=== PATIENT | male | born 2000 | race African-American/Black ===

== ENCOUNTER 2021-01-24 15:49 | Emergency (ER) | payer SELFPAY ==
--- NOTE | 2021-01-24 16:13 | PHYS DOC ---
Adult General Chief Complaint Chief Complaint: FEVER HPI HPI Patient is a 20-year-old male presenting for multiple complaints. Reports for past 72 hours, he is been unable to sleep, had generalized body aches and pains, has had rhinorrhea, dry nonproductive cough and ongoing nausea. Nothing known makes better or worse. Reports he has had decreased p.o. intake as a result of ongoing nausea. Admits he is otherwise healthy with no known medical diagnoses and takes no medications on a daily basis. Denies alcohol tobacco or drug use as he is currently on probation for prior drug use. Admits he had the first dose of an unknown Covid vaccine and is pending his second dose. Review of Systems Review of Systems Fourteen body systems of review of systems have been reviewed. See HPI for pertinent positives and negative responses, other jackson all other systems are negative, non-pertinent or non-contributory Allergies Allergies Allergies Coded Allergies Type Severity Reaction Last Updated Verified No Known Drug Allergies 01/24/21 No Physical Exam Physical Exam General: Appears well, non toxic, and comfortable Skin: Warm, dry. Normal for ethnicity. HEENT: Atraumatic. PERRLA. Rhinorrhea and congestion. Nasal turbinates boggy b/l. Moist mucous membranes. Uvula midline. Maintaining secretions. No phonation changes. Neck: Trachea midline. Normal ROM. No stridor. Respiratory: Normal WOB. CTAB w/o w/r/r. No tachypnea. Cardiovascular: Regular rate and rhythm. Normal peripheral perfusion. Abdomen: Soft. Non tender. No distension. Back: Normal ROM. Musculoskeletal: No swelling or deformity. Neuro: Alert and oriented x 4. MAEE. Lymph: No cervical LAD. Psych: Normal affect and mood. EKG EKG [] Radiology/Procedures Radiology/Procedures [] Heart Score C/O Chest Pain: No Risk Factors: Risk Factors: DM, Current or recent (<one month) smoker, HTN, HLP, family history of CAD, obesity. Risk Scores: Risk Factors: DM, Current or recent (<one month) smoker, HTN, HLP, family history of CAD, obesity. Course & Med Decision Making Course & Med Decision Making ABCs unremarkable. I disclosed entirety of ER findings and discussed most likely diagnosis of viral syndrome. Cannot exclude COVID-19 despite patient receiving first of 2 part series of vaccines, joint decision made to test patient with results pending. He is otherwise well-appearing and so, continued supportive care practices advised. Patient exhibits no red flag signs or symptoms such as neck pain, he does have all childhood vaccines and is not in any high risk areas like residential/ and does not have any fever etc. 4 mg ODT Zofran administered with improvement in patient's nausea, this will be prescribed to him on departure. Plan of care discussed at length with need for close outpatient follow-up to review today's ER visit stressed. Strict return precautions were also discussed at length with good understanding by patient. Patient voiced understanding and agreement with the plan. Patient knows to come back for repeat evaluation if concerning signs or symptoms present prior to out patient follow-up. Hemodynamically stable, ambulatory and well-appearing at time of disposition. Dragon Disclaimer Dragon Disclaimer This electronic medical record was generated, in whole or in part, using a voice recognition dictation system. Departure Departure: Impression: Primary Impression: Viral syndrome Additional Impressions: Person under investigation for COVID-19 Nausea Disposition: HOME / SELF CARE / HOMELESS Condition: STABLE Referrals: PCP,UNKNOWN (PCP) Patient Instructions: Viral Syndrome Additional Instructions: You were seen for headache, fever, body aches, and possible infection with COVID-19. Your physical exam was reassuring. We tested you for COVID-19 but this test does not come back for 1 to 2 days. In the meantime you need to quarantine yourself at home away from all other individuals, especially those who are elderly or have any other chronic health issues or an immunocompromised status. You should return to the ED if you develop worsening cough, shortness of breath, chest pain, or any other new or concerning symptoms. Alternate Tylenol and ibuprofen as needed for body aches and pain. If your test does come back positive you need to quarantine yourself for 10 days until symptom-free. You should make sure to drink plenty of fluids and get plenty of rest. Scripts Ondansetron (ONDANSETRON ODT) 4 Mg Tab.rapdis 1 TAB PO PRN Q6-8HRS for NAUSEA, #16 TAB Prov: DESTINEE FORD DO 01/24/21 Problem Qualifiers DESTINEE FORD DO Jan 24, 2021 16:13
[2021-01-24] MEDS ORDERED: ONDANSETRON ODT 4 MG TAB.RAPDIS PO ONE (16:15)
[2021-01-24] MEDS ORDERED: ACETAMINOPHEN 325 MG TABLET PO ONE (16:15)
[2021-01-24] MEDS ORDERED: ONDA4TAB12 PO (16:29)
== END 2021-01-24 16:36 | disposition home or self-care (01) ==
LOC: ER 15:49
DX: B34.9 Viral infection, unspecified (principal); Z20.822 Contact with and (suspected) exposure to COVID-19
CPT/HCPCS: 99283; C9803; Q0162; U0003

== ENCOUNTER 2021-09-20 06:56 | Emergency (ER) | payer SELFPAY ==
[~2021-09-20] VITALS: Ht 175.3 cm; Wt 69.5 kg
[~2021-09-20 06:56] MED LIST: ONDA4TAB12 PO
[2021-09-20 07:40] VITALS: BP 125/77
--- NOTE | 2021-09-20 07:46 | PHYS DOC ---
Adult General Chief Complaint Chief Complaint: FEVER HPI HPI Patient is a 21-year-old male presents with nausea and vomiting. Symptoms started yesterday. Patient states that he is thrown up several times. He has some epigastric discomfort intermittently in association with vomiting. He has not had any diarrhea. He states was 105 at home. He has had a nonproductive cough as well. No sick contacts. Review of Systems Review of Systems Constitutional: Reports fever Eyes: Denies change in visual acuity or eye pain HENT: Denies sore throat Respiratory: Reports cough and shortness of breath Cardiovascular: Denies chest pain GI: Reports epigastric abd pain : Denies dysuria Musculoskeletal: Denies back or extremity injury Integument: Denies rash or skin lesions Neurologic: Denies headache, focal weakness or sensory changes All other systems were reviewed and found to be within normal limits, except as documented in this note. Allergies Allergies Allergies Coded Allergies Type Severity Reaction Last Updated Verified No Known Drug Allergies 01/24/21 No Physical Exam Physical Exam Constitutional: Well developed, well nourished, no acute distress, non-toxic appearance. HENT: Normocephalic, atraumatic, bilateral external ears normal, mucosa moist, nose normal. Eyes: EOMI, conjunctiva normal, no discharge. Neck: Normal range of motion, supple, no stridor, no meningeal signs. Cardiovascular: Regular rate and rhythm Lungs & Thorax: Bilateral breath sounds clear to auscultation Abdomen: Soft, no tenderness or obvious masses Skin: Warm, dry, no erythema, no rash. Extremities: No tenderness, no cyanosis, no clubbing, ROM intact, no edema. Neurologic: Alert and oriented, normal motor function, normal sensory function, no focal deficits noted. Psychologic: Affect normal, judgement normal, mood normal. EKG EKG [] Radiology/Procedures Radiology/Procedures [] Heart Score C/O Chest Pain: No Risk Factors: Risk Factors: DM, Current or recent (<one month) smoker, HTN, HLP, family history of CAD, obesity. Risk Scores: Risk Factors: DM, Current or recent (<one month) smoker, HTN, HLP, family history of CAD, obesity. Course & Med Decision Making Course & Med Decision Making Pertinent Labs and Imaging studies reviewed. (See chart for details) [] This 21-year-old male with influenza A. We will give him a prescription for Tamiflu as well as Zofran. He was given fluids Zofran and Pepcid in the ED and symptoms have improved. He is stable for discharge. Yoli Disclaimer Yoli Disclaimer This electronic medical record was generated, in whole or in part, using a voice recognition dictation system. Departure Departure: Impression: Primary Impression: Influenza A Disposition: HOME / SELF CARE / HOMELESS Condition: STABLE Referrals: PCP,NO (PCP) Patient Instructions: Influenza A (H1N1) Scripts Oseltamivir Phosphate (TAMIFLU) 75 Mg Capsule 1 CAP PO BID for influenza, #10 CAP Prov: FAUSTINO ZAZUETA MD 09/20/21 Ondansetron (ONDANSETRON ODT) 4 Mg Tab.rapdis 1 TAB PO Q6HRS for nausea, #12 TAB Prov: FAUSTINO ZAZUETA MD 09/20/21 FAUSTINO ZAZUETA MD Sep 20, 2021 07:46
--- NOTE | 2021-09-20 08:01 | RAD ---
Exam Date: 09/20/2021 7:55 AM XR CHEST 1V Indication: Reason: fever / Spl. Instructions: / History: . FINDINGS/ IMPRESSION: The cardiac silhouette and pulmonary vasculature are within normal limits. There is no focal consolidation, pleural effusion or pneumothorax. The visualized osseous structures are intact. Electronically signed by: Asad Pérez MD (09/20/2021 7:59 AM) [id number]
[2021-09-20] MEDS: FAMOTIDINE 20 MG/2 ML VIAL IVP ONE (08:02)
[2021-09-20] MEDS: ONDANSETRON PF 4 MG/2 ML VIAL. IVP ONE (08:02)
[2021-09-20] MEDS: IV NORMAL SALINE 1,000ML 1,000 ML IV ONE (08:03)
[2021-09-20 08:16] LABS: BASO % 0 % (0-3); EOS % 0 % (0-3); HEMATOCRIT 42.9 % (39.0-53.0); HEMOGLOBIN 13.5 g/dL (13.0-17.5); LYMPH # 0.4 x10^3/uL (1.0-4.8); LYMPH % 8 % (24-48); MEAN CORPUSCULAR HEMOGLOBIN 24 pg (25-35); MEAN CORPUSCULAR HGB CONC 32 g/dL (31-37); MEAN CORPUSCULAR VOLUME 75 fL (79-100); MONO # 0.5 x10^3/uL (0.0-1.1); MONO % 9 % (0-9); NEUT # 4.7 x10^3uL (1.8-7.7); NEUT % 83 % (31-73); PLATELET COUNT 189 x10^3/uL (140-400); RED BLOOD COUNT 5.75 x10^6/uL (4.30-5.70); RED CELL DISTRIBUTION WIDTH 13.2 % (11.5-14.5); WHITE BLOOD COUNT 5.7 x10^3/uL (4.0-11.0)
[2021-09-20 08:19] LABS: CALCIUM 8.6 mg/dL (8.5-10.1); CREATININE 0.9 mg/dL (0.7-1.3); GFR 128.9; POTASSIUM 3.4 mmol/L (3.5-5.1)
[2021-09-20 08:25] LABS: ALBUMIN 3.9 g/dL (3.4-5.0); ALBUMIN/GLOBULIN RATIO 1.2 (1.0-1.7); MAGNESIUM 2.2 mg/dL (1.8-2.4); TOTAL BILIRUBIN 0.3 mg/dL (0.2-1.0); TOTAL PROTEIN 7.1 g/dL (6.4-8.2)
[2021-09-20 08:37] LABS: INFLUENZA B PATIENT NEGATIVE (NEGATIVE)
[2021-09-20 08:40] LABS: INFLUENZA A PATIENT POSITIVE (NEGATIVE)
[2021-09-20] MEDS ORDERED: OSEL75CA PO (08:48)
[2021-09-20] MEDS ORDERED: ONDA4TAB12 PO (08:48)
== END 2021-09-20 09:14 | disposition home or self-care (01) ==
LOC: ER 06:56
DX: J10.1 Influenza due to other identified influenza virus with other respiratory manifestations (principal)
CPT/HCPCS: 36415; 71045; 80053; 83690; 83735; 85025; 87428; 96361; 96374; 96375; 99284; G0480; J2405; J3490; J7030

== ENCOUNTER 2021-09-21 16:30 | Emergency (ER) | payer SELFPAY ==
[~2021-09-21] VITALS: Ht 175.3 cm; Wt 69.5 kg
[~2021-09-21 16:30] MED LIST changes: +OSEL75CA PO
[2021-09-21 16:35] VITALS: BP 136/75
--- NOTE | 2021-09-21 16:39 | PHYS DOC ---
Past History Additional Past Medical Histor: SVT (ANKIT CHONG MD) Past Surgical History: No Surgical History (ANKIT CHONG MD) Alcohol Use: None (ANKIT CHONG MD) General Adult EDM: Chief Complaint: SHORTNESS OF BREATH HPI: HPI: Patient is a 21-year-old male coming in via EMS from his apartment for weakness and shortness of breath. Patient was seen in the emergency department yesterday and diagnosed with influenza A, was discharged with Tamiflu. Patient has had nonproductive cough and body aches, denies any history of asthma. (ANKIT CHONG MD) Review of Systems: Review of Systems: All other systems within normal limits except for as noted in the HPI (ANKIT CHONG MD) Allergies: Allergies: Allergies Coded Allergies Type Severity Reaction Last Updated Verified No Known Drug Allergies 01/24/21 No (ANKIT CHONG MD) Physical Exam: PE: Constitutional: Well developed, well nourished, no acute distress, non-toxic appearance. [] HENT: Normocephalic, atraumatic, bilateral external ears normal, nose normal. [] Eyes: PERRLA, conjunctiva normal, no discharge. [] Neck: No rigidity, supple, no stridor. [] Cardiovascular: Regular rate and rhythm, brisk cap refill [] Lungs & Thorax: Non labored symmetric respirations, tachypneic, clear lung sounds Abdomen: Soft, nondistended. Skin: Warm, dry, no erythema, no rash. [] Back: Unremarkable Extremities: No deformities, range of motion grossly intact, no lower extremity edema [] Neurologic: Alert and oriented X 3, no focal deficits noted. [] Psychologic: Affect normal, judgement normal, mood normal. [] (ANKIT CHONG MD) EKG: EKG: [] (ANKIT CHONG MD) Radiology/Procedures: Radiology/Procedures: [address] [address] IMAGING REPORT Signed PATIENT: KIMBERLY MARES ACCOUNT: [id number] : 2000 LOCATION: ER AGE: 21 SEX: M EXAM STATUS: REG ER ORD. PHYSICIAN: ANKIT CHONG MD REASON: dyspnea PROCEDURE: CHEST AP ONLY INDICATION: Reason: dyspnea / Spl. Instructions: / History: COMPARISON: September 20, 2021 FINDINGS: Single view of chest obtained. Similar exam compared to prior without a definite new region of airspace consolidation or edema. Cardiac silhouette is unremarkable. IMPRESSION: * No focal airspace consolidation or edema. Electronically signed by: Faustino Amaya MD (09/21/2021 5:19 PM) [id number] DICTATED AND SIGNED BY: FAUSTINO AMAYA MD DATE: 09/21/211716 CC: ANKIT CHONG MD; PCP,NO ~ [] (ANKIT CHONG MD) Heart Score: C/O Chest Pain: No Risk Factors: Risk Factors: DM, Current or recent (<one month) smoker, HTN, HLP, family history of CAD, obesity. Risk Scores: Score 0 - 3: 2.5% MACE over next 6 weeks - Discharge Home Score 4 - 6: 20.3% MACE over next 6 weeks - Admit for Clinical Observation Score 7 - 10: 72.7% MACE over next 6 weeks - Early Invasive Strategies (ANKIT CHONG MD) Course & Med Decision Making: Course & Med Decision Making Pertinent Labs and Imaging studies reviewed. (See chart for details) [] (ANKIT CHONG MD) Course & Med Decision Making Patient care handed off to me at checkout pending reevaluation. Patient was diagnosed influenza. Awake alert and oriented in no acute distress. Able to take p.o. Feeling better and wanting to be discharged home. Asked for work note for tomorrow. Discussed symptom treatment at home. Advised to follow-up with primary care physician. Gave return precautions to the ED. Family grateful, verbalized understanding and agreed with plan of discharge. (KIMBERLY OSHEA MD) Dragon Disclaimer: Dragon Disclaimer: This electronic medical record was generated, in whole or in part, using a voice recognition dictation system. (ANKIT CHONG MD) Departure Departure: Impression: Primary Impression: Influenza Disposition: HOME / SELF CARE / HOMELESS Condition: STABLE Referrals: PCP,NO (PCP) AMELIA BEJARANO MD Patient Instructions: Influenza Facts, Influenza, Adult Additional Instructions: Thank you for coming into the emergency department tonight and allowing us to take care of you. Please read the attached information carefully to go over things we discussed. Please continue Tylenol, ibuprofen and Benadryl as we discussed every 6-8 hours as needed. Please be sure to take a One-A-Day vitamin and eat at least 3 nutritious meals daily and stay well-hydrated. Please call your primary care physician when you can update on ED visit and set up a follow- up. You are given a work note at your request. Please come back to the ED with new or concerning symptoms as discussed. ANKIT CHONG MD Sep 21, 2021 16:39 KIMBERLY OSHEA MD Sep 21, 2021 18:22
--- NOTE | 2021-09-21 17:22 | RAD ---
INDICATION: Reason: dyspnea / Spl. Instructions: / History: COMPARISON: September 20, 2021 FINDINGS: Single view of chest obtained. Similar exam compared to prior without a definite new region of airspace consolidation or edema. Card iac silhouette is unremarkable. IMPRESSION: * No focal airspace consolidation or edema. Electronically signed by: Rex Villa MD (09/21/2021 5:19 PM) [id number]
[2021-09-21] MEDS: IV NORMAL SALINE 1,000ML 1,000 ML IV ONE (17:45)
[2021-09-21 18:05] LABS: BASO % 1 % (0-3); EOS # 0.1 x10^3/uL (0.0-0.7); EOS % 2 % (0-3); HEMATOCRIT 45.5 % (39.0-53.0); HEMOGLOBIN 14.4 g/dL (13.0-17.5); LYMPH # 1.1 x10^3/uL (1.0-4.8); LYMPH % 36 % (24-48); MEAN CORPUSCULAR HEMOGLOBIN 24 pg (25-35); MEAN CORPUSCULAR HGB CONC 32 g/dL (31-37); MEAN CORPUSCULAR VOLUME 75 fL (79-100); MONO # 0.5 x10^3/uL (0.0-1.1); MONO % 16 % (0-9); NEUT # 1.4 x10^3uL (1.8-7.7); NEUT % 45 % (31-73); PLATELET COUNT 197 x10^3/uL (140-400); RED BLOOD COUNT 6.07 x10^6/uL (4.30-5.70); RED CELL DISTRIBUTION WIDTH 13.6 % (11.5-14.5); WHITE BLOOD COUNT 3.1 x10^3/uL (4.0-11.0)
[2021-09-21 18:12] LABS: CREATININE 0.8 mg/dL (0.7-1.3); GFR 147.7; POTASSIUM 4.4 mmol/L (3.5-5.1)
[2021-09-21] MEDS: KETOROLAC 15 MG/ML VIAL. IVP ONE (18:15)
[2021-09-21 18:25] LABS: ALBUMIN 3.6 g/dL (3.4-5.0); ALBUMIN/GLOBULIN RATIO 0.9 (1.0-1.7); MAGNESIUM 2.3 mg/dL (1.8-2.4); PHOSPHORUS 3.5 mg/dL (2.6-4.7); TOTAL BILIRUBIN 0.3 mg/dL (0.2-1.0); TOTAL PROTEIN 7.4 g/dL (6.4-8.2)
[2021-09-21 18:52] LABS: CLARITY,URINE CLEAR; COLOR,URINE YELLOW; GLUCOSE,URINE NEG (NEG)
[2021-09-21 18:53] LABS: BACTERIA,URINE 0 /HPF (0-FEW); NITRITE,URINE NEG (NEG); SQUAMOUS EPITHELIAL CELL,UR FEW /LPF; UROBILINOGEN,URINE 0.2 mg/dL (0.2 mg/dL)
--- NOTE | 2021-09-22 13:23 | RAD ---
NDICATION: Reason: dyspnea / Spl. Instructions: / History: COMPARISON: September 20, 2021 FINDINGS: Single view of chest obtained. Similar exam compared to prior without a definite new region of airspace consolidation or edema. Cardiac silhouette is unremarkable. IMPRESSION: * No focal airspace consolidation or edema. Electronically signed by: Rex Villa MD (09/21/2021 5:19 PM) [id number]
== END 2021-09-21 18:40 | disposition home or self-care (01) ==
LOC: ER 16:30
DX: J11.1 Influenza due to unidentified influenza virus with other respiratory manifestations (principal); Z20.822 Contact with and (suspected) exposure to COVID-19
CPT/HCPCS: 36415; 71045; 80053; 81001; 83605; 83735; 83880; 84100; 84484; 85025; 85379; 96361; 96374; 99284; C9803; J1885; J7030; U0003